=== PATIENT | male | born 1975 | race Caucasian/White ===

== ENCOUNTER 2018-05-05 12:49 | Emergency (ER) | payer MEDICAID, MEDICARE ==
[2018-05-05 13:27] VITALS: BP 127/75
--- NOTE | 2018-05-05 14:48 | UC ---
Hip/Pelvis Pain - HPI Summary HPI Summary: 42 y/o male presents to the urgent care c/o left side hip pain Last week pt was moving furniture for work and a he stumbled backwards causing the cough to land on his L side. C/O pain in L hip/buttocks area. Cant sit/stand , etc for long periods without pain - History Of Current Complaint Chief Complaint: UCBackPain Stated Complaint: LOW BACK/LEFT HIP PAIN W/C Time Seen by Provider: 05/05/18 14:46 Hx Obtained From: Patient Onset/Duration: Sudden Onset, Lasting Weeks - 1 week, Still Present, Worse Since - 3 days Timing: Constant Severity Initially: Moderate Severity Currently: Moderate Pain Intensity: 8 Pain Scale Used: 0-10 Numeric Location: Discrete At: - lower back and left hip pain, Radiates To: - left lower leg Character Of Pain: Sharp, Spasmodic Aggravating Factor(s): Movement Alleviating Factor(s): Rest Associated Signs And Symptoms: Positive: Negative. Negative: Swelling, Redness , Bruising, Fever, Weakness, Dizziness, Abdominal Pain, Knee Pain - Risk Factors Septic Arthritis Risk Factor: Negative - Allergies/Home Medications Allergies/Adverse Reactions: Allergies Allergy/AdvReac Type Severity Reaction Status Date / Time acetaminophen [From Tylenol] Allergy Intermediate Hives Verified 05/05/18 13:28 Home Medications: Home Medications Mirtazapine TAB* [Remeron TAB*] 15 mg PO DAILY 05/05/18 [History Confirmed 05/05] PMH/Surg Hx/FS Hx/Imm Hx Previously Healthy: Yes Psychological History: Depression - Surgical History Surgical History: None - Family History Known Family History: Positive: None - Pt dneies FMHX - Social History Occupation: Employed Full-time Lives: With Family Alcohol Use: Rare Substance Use Type: None Smoking Status (MU): Never Smoked Tobacco Review of Systems Constitutional: Negative Skin: Negative Eyes: Negative ENT: Negative Respiratory: Negative Cardiovascular: Negative Gastrointestinal: Negative Genitourinary: Negative Motor: Negative Neurovascular: Negative Musculoskeletal: Decreased ROM - lower back and left hip, Other: - acute lower back pain and left hip pain s/p fall at work Neurological: Negative Psychological: Negative Is Patient Immunocompromised?: No All Other Systems Reviewed And Are Negative: Yes Physical Exam - Summary Physical Exam Summary: Vital Signs Reviewed: Yes Appearance: Well-Appearing, Well-Nourished, male sitting in the examining table w/o any apparent distress. Eyes: Positive: Conjunctiva Clear - PERRLA, EOMI. ENT: Positive: Normal ENT inspection, Hearing grossly normal, Pharynx normal, TMs normal, Uvula midline Neck: Positive: Supple, Nontender, No Lymphadenopathy Respiratory: Positive: Chest non-tender, Lungs clear, Normal breath sounds, No respiratory distress Cardiovascular: Positive: RRR, No Murmur, Pulses Normal, Brisk Capillary Refill Abdomen Description: Positive: Nontender, No Organomegaly, Soft. Negative: CVA Tenderness (R), CVA Tenderness (L) Bowel Sounds: Positive: Present Musculoskeletal: Positive: Strength Intact, Other: - BACK: Patient walked into the urgent care room with symmetric ambulation, No signs of limping, antalgic, able to bear weight. No signs of trauma, No masses palpated. Point tenderness at the level of L5-S1, No CVAT, no flank ecchymosis . No sacroiliac notch tenderness, No saddle anesthesia.ROM: limited due to pain, Straight Leg Raise: negative. Patellar reflexes: brisk, symmetric Muscle strength lower extremities. Dorsiflexion/ plantar flexion of ankles. Heel/ toe walk. Lower extremities: Femoral, popliteal, posterior tibial, and dorsalis pedis pulses WNL. Pt refuse rectal exam Neurological: Positive: Alert, Muscle Tone Normal Psychological Exam: Normal Skin Exam: Normal Triage Information Reviewed: Yes Vital Signs: Initial Vital Signs Temp 98.3 F 05/05/18 13:23 Pulse 74 05/05/18 13:23 Resp 18 05/05/18 13:23 BP 127/75 05/05/18 13:23 Pulse Ox 98 05/05/18 13:23 Hip Injury Course/Dx - Differential Dx/Diagnosis Differential Diagnosis/HQI/PQRI: Arthritis, Contusion, Dislocation, Fracture, Sciatica, Sprain, Strain, Other - DDD, compression fracture Provider Diagnoses: 1- Acute lower back strain. 2- Back muscle spasm Discharge - Discharge Plan Condition: Stable Disposition: HOME Prescriptions: Cyclobenzaprine TAB* [Flexeril 10 MG TAB*] 10 mg PO TID PRN #21 tab PRN Reason: Spasms - Back Naproxen TAB* [Naprosyn 250 mg TAB*] 250 mg PO Q8H PRN #30 tab PRN Reason: Pain Patient Education Materials: Low Back Strain (ED), Muscle Spasm (ED) Forms: *Work Release Referrals: Matt Dash MD [Medical Doctor] - 1 Week Stanislav Liang MD [Primary Care Provider] - 1 Week Additional Instructions: 1- Please take Naproxen PO as directed after meals for pain. 2- Take Flexeril PO as directed for muscle spasm. Please do not drive while taking the medication. 3- Wear a back support. Avoid strenuous exercise of heavy lifting. 4- Please follow up with Orthopedic Dr Dash or your PCP in 1 week if not improvement of symptoms, for further management. - Billing Disposition and Condition Condition: STABLE Disposition: Home
[2018-05-05] MEDS ORDERED: Ibuprofen TAB* 400 MG PO ONE (14:57)
--- NOTE | 2018-05-05 16:13 | RAD ---
Indication: Left hip pain after fall. 2 views of left hip and an AP view the pelvis demonstrates no definite fracture or dislocation. Hip joint is well-preserved. Single view of the pelvis demonstrates pelvic ring to be intact. Sacroiliac joints are unremarkable. IMPRESSION: Unremarkable left hip and pelvis.
--- NOTE | 2018-05-05 16:14 | RAD ---
Indication: Back pain. 4 views of lumbar spine demonstrate vertebral bodies to be normal in height. Disc spaces all well-preserved. Pedicles appear intact. Pedicles appear intact. IMPRESSION: No fracture of the lumbar spine is noted.
== END 2018-05-05 16:33 | disposition home or self-care (01) ==
LOC: UCCORT 12:49
DX: S39.012A Strain of muscle, fascia and tendon of lower back, initial encounter (principal); W20.8XXA Other cause of strike by thrown, projected or falling object, initial encounter; Y93.89 Activity, other specified; Y92.9 Unspecified place or not applicable; Y99.0 Civilian activity done for income or pay; M62.830 Muscle spasm of back; Z88.6 Allergy status to analgesic agent; F32.9 Major depressive disorder, single episode, unspecified
CPT/HCPCS: 72110; 99212; A9270-GY; G0463